=== PATIENT | female | born 1980 | race Caucasian/White ===

== ENCOUNTER 2016-09-08 10:05 | Inpatient (IN) | payer BC ==
[2016-09-08] MEDS ORDERED: Sodium Chloride 0.9% 10 ML Syringe FLUSH PRN (10:19)
[2016-09-08] MEDS ORDERED: Ondansetron 4 MG/2 ML SDV IVPUSH PRN ×2 (10:19→15:46)
[2016-09-08] MEDS ORDERED: Nalbuphine 20 MG/1 ML Amp IVPUSH PRN (10:19)
--- NOTE | 2016-09-08 10:26 | PCM.LDHP ---
L&D History of Present Illness - General Date of Service: 09/08/16 Admit Problem/Dx: Patient Status Order with Admit Dx/Problem 09/08/16 10:20 Patient Status [ADT] Routine Admission Diagnosis/Problem Admission Diagnosis/Problem Normal Source of Information: Patient History Limitations: Reports: No limitations - History of Present Illness Introduction:: Patient is a 36-year-old at 39-1/7 weeks gestation who presented to clinic earlier today with concerns of rupture of membranes. This occurred about 2 AM with a larger gush later on in the morning. She was confirmed ruptured. Noticing some cramping but no strong contractions yet. Past Medical History [employer] History: Reports: : 2 Para: 1 LMP (Approximate): - Past Surgical History Neurological Surgical History: Reports: Other (see below) (Spine procedure) Musculoskeletal Surgical History: Reports: Arthroscopic knee Social & Family History - Family History Family Medical History: Noncontributory - Tobacco Use Smoking Status *Q: Never Smoker - Alcohol Use Alcohol Use History: No - Recreational Drug Use Recreational Drug Use: No H&P Review of Systems - Review of Systems: Review Of Systems: See Below General: Reports: no symptoms Pulmonary: Reports: No Symptoms Cardiovascular: Reports: no symptoms Gastrointestinal: Reports: No symptoms Genitourinary: Reports: no symptoms Musculoskeletal: Reports: no symptoms Psychiatric: Reports: no symptoms L&D Exam - Exam Exam: See Below - OB Specific Contraction Intensity: Mild movement: active heart tones: present heart tones per min: 135 Heart Rate (FHR) Variability: Moderate (6-25 bmp) Presentation: Vertex - Darden Score Darden Score Cervix Position: Midposition Darden Score Consistency: Soft Darden Score Effacement: >80% Darden Score Dilation: 1-2 cm Darden Score 's Station: -3 Darden Score Total: 7 - Exam General: alert, oriented, cooperative Lungs: Clear to auscultation, Normal respiratory effort Cardiovascular: regular rate, regular rhythm Abdomen: soft Genitourinary: Normal external exam Extremities: normal inspection Skin: warm, dry, intact - Problem List (1) 39 weeks gestation of SNOMED Code(s): 80451832 ICD Code: Z3A.39 - 39 WEEKS GESTATION OF Status: Acute Current Visit: Yes (2) Spontaneous rupture of membranes SNOMED Code(s): 698163912 ICD Code: [id number] - Status: Acute Current Visit: Yes (3) GBS (group B Streptococcus carrier), +RV culture, currently SNOMED Code(s): 87103950, 676929388 ICD Code: O99.820 - STREPTOCOCCUS B CARRIER STATE COMPLICATING Status: Acute Current Visit: Yes Problem List Initiated/Reviewed/Updated: Yes Orders Last 24hrs: Active Orders 24 hr Category Date Time Status Patient Status [ADT] Routine ADT 09/08/16 10:20 Ordered Activity as Tolerated [RC] PFP Care 09/08/16 10:20 Ordered Communication Order [RC] ASDIRECTED Care 09/08/16 10:20 Ordered Heart Tones [RC] ASDIRECTED Care 09/08/16 10:20 Ordered Notify Provider [RC] PFP Care 09/08/16 10:20 Ordered Notify Provider [RC] PRN Care 09/08/16 10:20 Ordered Peripheral IV Care [RC] . DIRECTED Care 09/08/16 10:20 Ordered Vital Signs [RC] PER UNIT ROUTINE Care 09/08/16 10:20 Ordered CBC W/O DIFF,HEMOGRAM [HEME] Routine Lab 09/08/16 10:19 Ordered TYPE AND SCREEN [BBK] Routine Lab 09/08/16 10:19 Ordered Ampicillin 1 gm Med 09/08/16 10:30 Ordered Sodium Chloride 0.9% [Normal Saline] 100 ml IV Q4H Ampicillin 2 gm Med 09/08/16 10:19 Ordered Sodium Chloride 0.9% [Normal Saline] 100 ml IV ONETIME Lactated Ringers [Ringers, Lactated] 1,000 ml Med 09/08/16 10:30 Ordered IV ASDIRECTED Nalbuphine [Nubain] Med 09/08/16 10:19 Ordered 10 mg IVPUSH Q2H PRN Ondansetron [Zofran] Med 09/08/16 10:19 Ordered 4 mg IVPUSH Q4H PRN Oxytocin/Lactated Ringers [Pitocin in LR 10 Units/1,000 Med 09/08/16 10:30 Ordered ML] 10 unit in 1,000 ml IV TITRATE Sodium Chloride 0.9% [Saline Flush] Med 09/08/16 10:19 Ordered 10 ml FLUSH ASDIRECTED PRN Electronic Heart Tones Ext w TOCO [WOMSER] Ot 09/08/16 10:20 Ordered Routine Electronic Heart Tones Internal [WOMSER] Per Unit Ot 09/08/16 10:20 Ordered Routine Peripheral IV Insertion Adult [OM.PC] Routine Ot 09/08/16 10:20 Ordered Resuscitation Status Routine Resus Stat 09/08/16 10:19 Ordered Assessment/Plan Comment:: 36-year-old at 39-1/7 weeks gestation who presents for rupture of membranes * CBC and T&S * GBS positive, will start Ampicillin for prophylaxis * Epidural per patient preference * If cramping does not become stronger can consider pitocin for augmentation * Anticipate Magda Liz MD
[2016-09-08] MEDS ORDERED: Oxytocin/Lactated Ringers 10 UNIT/1,000 ML BAG IV SCH ×2 (10:30→12:45)
[2016-09-08] MEDS ORDERED: Ampicillin 2 GM in Sodium Chloride 0.9% 100 ML IV ONE (11:00)
[2016-09-08] MEDS: Lactated Ringers 1,000 ML IV SCH ×4 (11:15→18:50)
[2016-09-08] MEDS: Ampicillin 1 GM in Sodium Chloride 0.9% 100 ML IV SCH ×2 (15:09→18:51)
--- NOTE | 2016-09-08 15:37 | PCM.PREANE ---
Preanesthetic Assessment - Anesthesia/Transfusion/Family Hx Anesthesia History: Prior Anesthesia Without Reaction (pt stated with last epidural, she did not have enough lidocaine for the skin wheel and it was very painful with the tuhoy insertion. Pt states local anesthetic doesnt work well periof for her (knee surgeries, dentist...)) Type of Anesthesia Reaction: Excessive Nausea/Vomiting Family History of Anesthesia Reaction: No Transfusion History: No Prior Transfusion(s) - Review of Systems General: No Symptoms Pulmonary: No Symptoms Cardiovascular: No Symptoms Gastrointestinal: Other (GERD at HS) Neurological: No Symptoms Other: Reports: None - Physical Assessment O2 Sat by Pulse Oximetry: 98 Respiratory Rate: 14 Vital Signs: Last Vital Signs Temp 36.8 C 09/08/16 10:20 Pulse 81 09/08/16 10:20 Resp 14 09/08/16 10:20 BP 133/78 09/08/16 10:20 Pulse Ox 98 09/08/16 10:20 Height: 1.6 m Weight: 100.698 kg ASA Class: 2 Mental Status: Alert & Oriented x3 Airway Class: Mallampati = 1 Dentition: Reports: Normal Dentition Thyro-Mental Finger Breadths: 3 Mouth Opening Finger Breadths: 3 ROM/Head Extension: Full Lungs: Clear to auscultation, Normal respiratory effort Cardiovascular: Regular Rate, Regular Rhythm - Lab Values: Laboratory Last Values WBC 7.97 K/mm3 (3.98-10.04) 09/08/16 10:47 RBC 4.18 M/mm3 (3.98-5.22) 09/08/16 10:47 Hgb 12.9 gm/L (11.2-15.7) 09/08/16 10:47 Hct 38.0 % (34.1-44.9) 09/08/16 10:47 MCV 90.9 fl (79.4-94.8) 09/08/16 10:47 MCH 30.9 pg (25.6-32.2) 09/08/16 10:47 MCHC 33.9 g/dl (32.2-35.5) 09/08/16 10:47 RDW Std Deviation 41.6 fL (36.4-46.3) 09/08/16 10:47 Plt Count 201 K/mm3 (182-369) 09/08/16 10:47 MPV 10.4 fl (9.4-12.3) 09/08/16 10:47 Blood Type A NEGATIVE 09/08/16 10:47 Gel Antibody Screen Positive 09/08/16 10:47 - Allergies Allergies/Adverse Reactions: Allergies Allergy/AdvReac Type Severity Reaction Status Date / Time No Known Allergies Allergy Verified 09/08/16 10:58 - Blood Blood Available: No Product(s) Available: None - Acknowledgements Anesthesia Type Planned: Epidural Pt an Appropriate Candidate for the Planned Anesthesia: Yes Alternatives and Risks of Anesthesia Discussed w Pt/Guardian: Yes Pt/Guardian Understands and Agrees with Anesthesia Plan: Yes 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: Endocrine/Metabolic History: Reports: Obesity/BMI 30+ - Past Surgical History Neurological Surgical History: Reports: Other (see below) (Spine procedure) Musculoskeletal Surgical History: Reports: Arthroscopic knee - SUBSTANCE USE Smoking Status *Q: Never Smoker Second Hand Smoke Exposure: No Recreational Drug Use History: No - CURRENT (IN HOUSE) MEDS Current Meds: Current Medications Ampicillin Sodium 1 gm/ Sodium (Chloride) 100 mls @ 200 mls/hr IV Q4H SIXTO Last Admin: 09/08/16 15:09 Dose: 200 mls/hr Lactated Ringer's (Ringers, Lactated) 1,000 mls @ 100 mls/hr IV ASDIRECTED SIXTO Last Admin: 09/08/16 11:15 Dose: 100 mls/hr Oxytocin/Lactated Ringer's (Pitocin In Lr 10 Units/1,000 Ml) 10 unit in 1,000 mls @ 12 mls/hr IV TITRATE SIXTO; 2 MUNITS/MIN PRN Reason: Protocol Last Titration: 09/08/16 15:12 Dose: 8 munits/min, 48 mls/hr Nalbuphine HCl (Nubain) 10 mg IVPUSH Q2H PRN PRN Reason: Pain (moderate 4-6) Ondansetron HCl (Zofran) 4 mg IVPUSH Q4H PRN PRN Reason: Nausea/Vomiting Sodium Chloride (Saline Flush) 10 ml FLUSH ASDIRECTED PRN PRN Reason: Keep Vein Open Discontinued Medications Ampicillin Sodium 2 gm/ Sodium (Chloride) 100 mls @ 200 mls/hr IV ONETIME ONE Stop: 09/08/16 11:29 Last Admin: 09/08/16 11:15 Dose: 200 mls/hr Oxytocin/Lactated Ringer's (Pitocin In Lr 10 Units/1,000 Ml) 10 unit in 1,000 mls @ 500 mls/hr IV TITRATE SIXTO PRN Reason: Protocol
[2016-09-08] MEDS ORDERED: ePHEDrine 50 MG/ML SDV IVPUSH PRN (15:46)
[2016-09-08] MEDS ORDERED: diphenhydrAMINE 50 MG/ML SDV IVPUSH PRN (15:46)
[2016-09-08] MEDS ORDERED: fentaNYL 100 MCG/2 ML SDV EPIDUR PRN (15:46)
[2016-09-08] MEDS ORDERED: Bupivacaine/fentaNYL/NS 100 ML Bag EPIDUR SCH (16:00)
[2016-09-08] MEDS ORDERED: Misoprostol 200 MCG Tab ONE (21:05)
[2016-09-08] MEDS ORDERED: Docusate Sodium 100 MG Cap PO PRN (22:44)
[2016-09-08] MEDS ORDERED: Benzocaine/Menthol 20%-0.5% Spray 56 GM Canister TOP PRN (22:44)
[2016-09-08] MEDS ORDERED: Lanolin 100% Cream 7 GM Tube TOP PRN (22:44)
[2016-09-08] MEDS ORDERED: Witch Hazel Medicated Pads 100/Jar TOP PRN (22:44)
--- NOTE | 2016-09-09 04:32 | PCM.PNPP ---
- General Info Date of Service: 09/09/16 Functional Status: Reports: pain controlled - Review of Systems General: Reports: No Symptoms HEENT: Reports: no symptoms Pulmonary: Reports: no symptoms Cardiovascular: Reports: No Symptoms Gastrointestinal: Reports: No symptoms Genitourinary: Reports: no symptoms Musculoskeletal: Reports: no symptoms Skin: Reports: no symptoms Neurological: Reports: No Symptoms Psychiatric: Reports: no symptoms - General Info Date of Service: 09/09/16 - Patient Data Vital Signs - most recent: Last Vital Signs Temp 37.0 C 09/08/16 22:44 Pulse 73 09/08/16 22:44 Resp 20 09/08/16 22:44 BP 119/52 L 09/08/16 22:44 Pulse Ox 98 09/08/16 15:46 Weight - most recent: 100.698 kg I&O - last 24 hours: Intake & Output 09/08/16 09/08/16 09/09/16 14:59 22:59 06:59 Intake Total 120 Balance 120 Lab Results - last 24 hrs: Laboratory Results - last 24 hr 09/08/16 09/08/16 Range/Units 10:47 10:47 WBC 7.97 (3.98-10.04) K/mm3 RBC 4.18 (3.98-5.22) M/mm3 Hgb 12.9 (11.2-15.7) gm/L Hct 38.0 (34.1-44.9) % MCV 90.9 (79.4-94.8) fl MCH 30.9 (25.6-32.2) pg MCHC 33.9 (32.2-35.5) g/dl RDW Std Deviation 41.6 (36.4-46.3) fL Plt Count 201 (182-369) K/mm3 MPV 10.4 (9.4-12.3) fl Blood Type A NEGATIVE Gel Antibody Screen Positive Med Orders - Current: Current Medications Benzocaine/Menthol (Dermoplast Pain Relief [place]) 0 gm TOP ASDIRECTED PRN PRN Reason: Perineal Comfort Measure Last Admin: 09/09/16 01:10 Dose: 1 can Docusate Sodium (Colace) 100 mg PO BID PRN PRN Reason: Constipation Emollient Ointment (Lansinoh Hpa) 0 gm TOP ASDIRECTED PRN PRN Reason: Sore Nipples Ibuprofen (Motrin) 600 mg PO Q6H PRN PRN Reason: Mild pain or fever Witch Michela (Tucks) 1 pad TOP ASDIRECTED PRN PRN Reason: Hemorrhoid pain Last Admin: 09/09/16 01:11 Dose: 1 jar Discontinued Medications Diphenhydramine HCl (Benadryl) 25 mg IVPUSH Q6H PRN PRN Reason: Pruritis Ephedrine Sulfate (Ephedrine Sulfate) 5 mg IVPUSH ASDIRECTED PRN PRN Reason: Hypotension Fentanyl (Sublimaze) 100 mcg EPIDUR Q3H PRN PRN Reason: Pain Last Admin: 09/08/16 17:21 Dose: 100 mcg Fentanyl/Bupivacaine HCl (Fentanyl/Bupivacaine/Ns 2 Mcg-0.125% 100 Ml) 100 ml EPIDUR ASDIRECTED SIXTO Last Admin: 09/08/16 17:21 Dose: 100 ml Ampicillin Sodium 2 gm/ Sodium (Chloride) 100 mls @ 200 mls/hr IV ONETIME ONE Stop: 09/08/16 11:29 Last Admin: 09/08/16 11:15 Dose: 200 mls/hr Ampicillin Sodium 1 gm/ Sodium (Chloride) 100 mls @ 200 mls/hr IV Q4H SIXTO Last Admin: 09/08/16 18:51 Dose: 200 mls/hr Lactated Ringer's (Ringers, Lactated) 1,000 mls @ 100 mls/hr IV ASDIRECTED SIXTO Last Admin: 09/08/16 18:50 Dose: 100 mls/hr Oxytocin/Lactated Ringer's (Pitocin In Lr 10 Units/1,000 Ml) 10 unit in 1,000 mls @ 500 mls/hr IV TITRATE SIXTO PRN Reason: Protocol Oxytocin/Lactated Ringer's (Pitocin In Lr 10 Units/1,000 Ml) 10 unit in 1,000 mls @ 12 mls/hr IV TITRATE SIXTO; 2 MUNITS/MIN PRN Reason: Protocol Last Titration: 09/08/16 17:50 Dose: 0 munits/min, 0 mls/hr Misoprostol (Cytotec) Confirm Administered Dose 200 mcg .ROUTE .STK-MED ONE Stop: 09/08/16 21:06 Last Admin: 09/08/16 21:12 Dose: 200 mcg Nalbuphine HCl (Nubain) 10 mg IVPUSH Q2H PRN PRN Reason: Pain (moderate 4-6) Ondansetron HCl (Zofran) 4 mg IVPUSH Q4H PRN PRN Reason: Nausea/Vomiting Last Admin: 09/08/16 19:09 Dose: 4 mg Ondansetron HCl (Zofran) 4 mg IVPUSH ONETIME PRN PRN Reason: Nausea/Vomiting Sodium Chloride (Saline Flush) 10 ml FLUSH ASDIRECTED PRN PRN Reason: Keep Vein Open - Infant Interaction Infant Disposition, : at Bedside Support Person: - Recovery Exam Fundal Tone: Firm Fundal Level: 2 Fingerbreadths Below Umbilicus Fundal Placement: Midline Lochia Amount: Moderate Lochia Color: Rubra/Red Episiotomy/Laceration: Approximated Urinary Elimination: Voided - Exam General: alert, oriented HEENT: Pupils equal Neck: supple Lungs: Normal respiratory effort Cardiovascular: Regular Rate, Regular Rhythm Abdomen: bowel sounds present, soft, no tenderness, no distension Extremities: no edema Skin: warm, dry, intact Wound/Incisions: healing well Neurological: no new focal deficit Psy/Mental Status: alert, normal affect, normal mood - Problem List Review Problem List Initiated/Reviewed/Updated: Yes - My Orders Last 24 Hours: My Active Orders 09/08/16 22:44 Activity as Tolerated [RC] PER UNIT ROUTINE Vital Signs [RC] ASDIRECTED Benzocaine/Menthol [Dermoplast Pain Relief [place]] See Dose Instructions TOP ASDIRECTED PRN Docusate Sodium [Colace] 100 mg PO BID PRN Ibuprofen [Motrin] 600 mg PO Q6H PRN Lanolin [Lansinoh HPA] See Dose Instructions TOP ASDIRECTED PRN Witch Michela [Tucks] 1 pad TOP ASDIRECTED PRN Assess Lochia [WOMSER] Per Unit Routine Assess Uterine Involution [WOMSER] Per Unit Routine Breast Pump [WOMSER] Per Unit Routine Heat Therapy [OM.PC] PRN Medication Administration Instruction [OM.PC] Routine Perineal Care [OM.PC] Per Unit Routine Sitz Bath [OM.PC] Per Unit Routine 09/09/16 21:26 CBC W/O DIFF,HEMOGRAM [HEME] Routine 09/09/16 22:44 Heat Therapy [OM.PC] PRN - Assessment Assessment:: PPD1. Doing great. - Plan Plan:: 36-year-old who was 39-1/7 weeks gestation status post * Doing well. * Routine care * GBS positive * Plan discharge
[2016-09-09] MEDS: Ibuprofen 600 MG Tab PO PRN ×2 (05:21→18:59)
--- NOTE | 2016-09-09 08:30 | PCM48HPAN ---
Post Anesthesia Note - EVALUATION WITHIN 48HRS OF ANESTHETIC Vital Signs in Normal Range: Yes Patient Participated in Evaluation: Yes Respiratory Function Stable: Yes Airway Patent: Yes Cardiovascular Function Stable: Yes Hydration Status Stable: Yes Pain Control Satisfactory: Yes Nausea and Vomiting Control Satisfactory: Yes Mental Status Recovered: Yes
[2016-09-10] MEDS: Ibuprofen 600 MG Tab PO PRN (06:56)
[2016-09-10 08:25] VITALS: BP 132/90
--- NOTE | 2016-09-23 07:42 | PCM.DCSUM1 ---
Discharge Summary - Hospital Course Brief History: Admitted for labor. Unremarkable course. - Discharge Data Discharge Date: 09/10/16 Discharge Disposition: Home, Self-Care 01 Condition: Good - Patient Instructions Diet: Regular Diet as Tolerated Activity: No Strenuous Activities Showering/Bathing: September Shower Notify Provider of: Fever, Increased Pain, Swelling and Redness, Drainage, Nausea and/or Vomiting - Discharge Plan Patient Handouts: Depression and Baby Blues, Home Care Instructions for Mom Referrals: Patrizia Pino MD [Primary Care Provider] - (Follow up with Dr. Pino in 6 weeks. Call to schedule appointment. ) - Discharge Summary/Plan Comment DC Time >30 min.: No - General Info Date of Service: 09/10/16 Functional Status: Reports: pain controlled - Review of Systems General: Reports: No Symptoms HEENT: Reports: no symptoms Pulmonary: Reports: no symptoms Cardiovascular: Reports: No Symptoms Gastrointestinal: Reports: No symptoms Genitourinary: Reports: no symptoms Musculoskeletal: Reports: no symptoms Skin: Reports: no symptoms Neurological: Reports: No Symptoms Psychiatric: Reports: no symptoms - Patient Data Vitals - Most Recent: Last Vital Signs Temp 36.6 C 09/10/16 05:00 Pulse 78 09/10/16 07:57 Resp 15 09/10/16 07:57 BP 132/90 09/10/16 07:57 Pulse Ox 99 09/10/16 07:57 Weight - Most Recent: 100.698 kg Med Orders - Current: Current Medications Discontinued Medications Benzocaine/Menthol (Dermoplast Pain Relief [place]) 0 gm TOP ASDIRECTED PRN PRN Reason: Perineal Comfort Measure Last Admin: 09/09/16 01:10 Dose: 1 can Bupivacaine HCl (Sensorcaine-Mpf 0.25%) 10 ml .ROUTE .STK-MED ONE Stop: 09/28/16 22:23 Diphenhydramine HCl (Benadryl) 25 mg IVPUSH Q6H PRN PRN Reason: Pruritis Docusate Sodium (Colace) 100 mg PO BID PRN PRN Reason: Constipation Emollient Ointment (Lansinoh Hpa) 0 gm TOP ASDIRECTED PRN PRN Reason: Sore Nipples Ephedrine Sulfate (Ephedrine Sulfate) 5 mg IVPUSH ASDIRECTED PRN PRN Reason: Hypotension Fentanyl (Sublimaze) 100 mcg EPIDUR Q3H PRN PRN Reason: Pain Last Admin: 09/08/16 17:21 Dose: 100 mcg Fentanyl/Bupivacaine HCl (Fentanyl/Bupivacaine/Ns 2 Mcg-0.125% 100 Ml) 100 ml EPIDUR ASDIRECTED SIXTO Last Admin: 09/08/16 17:21 Dose: 100 ml Ampicillin Sodium 2 gm/ Sodium (Chloride) 100 mls @ 200 mls/hr IV ONETIME ONE Stop: 09/08/16 11:29 Last Admin: 09/08/16 11:15 Dose: 200 mls/hr Ampicillin Sodium 1 gm/ Sodium (Chloride) 100 mls @ 200 mls/hr IV Q4H [facility] Last Admin: 09/08/16 18:51 Dose: 200 mls/hr Lactated Ringer's (Ringers, Lactated) 1,000 mls @ 100 mls/hr IV ASDIRECTED SIXTO Last Admin: 09/08/16 18:50 Dose: 100 mls/hr Oxytocin/Lactated Ringer's (Pitocin In Lr 10 Units/1,000 Ml) 10 unit in 1,000 mls @ 500 mls/hr IV TITRATE SIXTO PRN Reason: Protocol Oxytocin/Lactated Ringer's (Pitocin In Lr 10 Units/1,000 Ml) 10 unit in 1,000 mls @ 12 mls/hr IV TITRATE SIXTO; 2 MUNITS/MIN PRN Reason: Protocol Last Titration: 09/08/16 17:50 Dose: 0 munits/min, 0 mls/hr Ibuprofen (Motrin) 600 mg PO Q6H PRN PRN Reason: Mild pain or fever Last Admin: 09/10/16 06:56 Dose: 600 mg Lidocaine/Epinephrine (Xylocaine-Mpf 1.5% W/Epinephrine 1:200,000) 10 ml .ROUTE .STK-MED ONE Stop: 09/28/16 22:23 Misoprostol (Cytotec) Confirm Administered Dose 200 mcg .ROUTE .STK-MED ONE Stop: 09/08/16 21:06 Last Admin: 09/08/16 21:12 Dose: 200 mcg Nalbuphine HCl (Nubain) 10 mg IVPUSH Q2H PRN PRN Reason: Pain (moderate 4-6) Ondansetron HCl (Zofran) 4 mg IVPUSH Q4H PRN PRN Reason: Nausea/Vomiting Last Admin: 09/08/16 19:09 Dose: 4 mg Ondansetron HCl (Zofran) 4 mg IVPUSH ONETIME PRN PRN Reason: Nausea/Vomiting Sodium Chloride (Saline Flush) 10 ml FLUSH ASDIRECTED PRN PRN Reason: Keep Vein Open Witch Michela (Tucks) 1 pad TOP ASDIRECTED PRN PRN Reason: Hemorrhoid pain Last Admin: 09/09/16 01:11 Dose: 1 jar - Exam General: Reports: alert, oriented HEENT: Reports: Pupils equal, Pupils reactive, EOMI, Mucous membr. moist/pink Neck: Reports: supple Lungs: Reports: Clear to auscultation, Normal respiratory effort Cardiovascular: Reports: Regular Rate, Regular Rhythm Abdomen: Reports: bowel sounds present, soft, no tenderness, no distension (Female) Exam: Normal External Exam, Normal Speculum Exam, Normal Bimanual Exam Back Exam: Reports: Normal Inspection, Full Range of Motion Extremities: Reports: no edema, normal pulses Skin: Reports: warm, dry, intact Wound/Incisions: Reports: healing well Neurological: Reports: no new focal deficit Psy/Mental Status: Reports: alert, normal affect, normal mood *Q Meaningful Use (DIS) - VTE *Q VTE Criteria *Q: - Stroke *Q Stroke Criteria *Q: - AMI *Q AMI Criteria *Q:
[2016-09-28] MEDS ORDERED: Lidocaine 1.5% with EPINEPHrine 1:200,000 5 ML Amp ONE (22:22)
[2016-09-28] MEDS ORDERED: Bupivacaine 0.25% 10 ML SDV ONE (22:22)
== END 2016-09-10 08:10 | disposition home or self-care (01) | DRG 560 ==
LOC: JD.OB 10:05 → OBSVTOIN 20:52 → JD.OB 20:52
PROVIDERS: ADMIT Obstetrics & Gynecology; ATTEND Obstetrics & Gynecology
PROC: 10E0XZZ Delivery of Products of Conception, External Approach (ICD-10-PCS; principal; 2016-09-08)
PROC: 0KQM0ZZ Repair Perineum Muscle, Open Approach (ICD-10-PCS; 2016-09-08)
PROC: 00HU33Z Insertion of Infusion Device into Spinal Canal, Percutaneous Approach (ICD-10-PCS; 2016-09-08)
PROC: 3E0R3CZ (ICD-10-PCS; 2016-09-08)
DX: O42.02 Full-term premature rupture of membranes, onset of labor within 24 hours of rupture (principal); O99.820 Streptococcus B carrier state complicating pregnancy; O70.1 Second degree perineal laceration during delivery; Z3A.39 39 weeks gestation of pregnancy; Z37.0 Single live birth
CPT/HCPCS: 01967; 36415; 85027; 85461; 86850; 86870; 86900; 86901; A9270-GY; J0290; J2405; J2590; J2790; J3010; J7030; J7120